=== PATIENT | female | born 1935 | race Caucasian/White ===

== ENCOUNTER 2016-08-27 09:13 | Inpatient (IN) ==
--- NOTE | 2016-08-27 09:17 | Emergency Department Note ---
Disposition Clinical Impression: Chest pain, History of hypertension, Obesity, Abnormal EKG, Adverse reaction to aspirin, History of pulmonary embolus (PE), Non-STEMI (non-ST elevated myocardial infarction), Elevated troponin, Hypokalemia Disposition: Admitted As Inpatient Referrals: Skip Herrera Jr, MD [Primary Care Provider] - General Adult HPI - General Stated complaint: Chest Pain Time Seen by Provider: 08/27/16 09:16 - History of Present Illness HPI Narrative: 80-year-old female reports emergency department concerned with midsternal chest discomfort. She describes a pressure-like sensation does not radiate. There is no history of coughing, leg swelling or pain, coughing up blood or syncope. No strokelike symptoms no trouble walking talking hearing seeing or speaking confusion dysarthria or unilateral arm or leg weakness or numbness. The patient is currently not anticoagulated. She has no history of primary lung disease COPD asthma or CAD or PE or DVT or cancer. The patient reports her only medical problem is high blood pressure. She denies previous heart catheter or stress test. The patient does not usually have chest pain. She does not recall injuring herself the pain is not associated with breathing in and out or movement. There is no history of rash fever or any other complaint or concern. The pain started last evening. The patient states she has been moving and is under a lot of stress. 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 - Related Data Home Medications Medication Instructions Recorded Confirmed hydroCHLOROthiazide 25 mg PO DAILY 08/27/16 08/27/16 [Hydrochlorothiazide] Allergies Allergy/AdvReac Type Severity Reaction Status Date / Time aspirin Allergy See Verified 08/27/16 11:19 Comments heparin Allergy See Verified 08/27/16 11:19 Comments All systems ED: reviewed and negative except as stated. Past Medical History - Past Medical History Medical history: Reports: hypertension - Social History Smoking Status: Unknown if ever smoked Smokeless Tobacco Status: No Alcohol use: Reports: occasionally Physical Exam - General Limitations: no limitations General appearance: alert, in no apparent distress - Head Head exam: atraumatic, normocephalic, normal inspection - Eye Eye exam: Present: normal appearance, PERRL, EOMI. Absent: scleral icterus, conjunctival injection, miosis, mydriasis, periorbital swelling - ENT ENT exam: normal exam, normal oropharynx, mucous membranes moist, TM's normal bilaterally, normal external ear exam - Neck Neck exam: Present: normal inspection, full ROM, trachea midline - Chest Chest inspection: Present: symmetric chest wall rise. Absent: tenderness - Respiratory Respiratory exam: Present: normal lung sounds bilaterally. Absent: respiratory distress, wheezes, stridor, accessory muscle use, prolonged expiratory phase - Cardiovascular Cardiovascular exam: Present: regular rate, normal rhythm, normal heart sounds - Abdominal Exam Abdominal exam: Present: soft, Non-Tender, normal bowel sounds. Absent: tenderness, distention, guarding, rebound, rigidity, pulsatile mass - Extremities Exam Extremities exam: Present: normal inspection, full ROM, normal capillary refill. Absent: tenderness, pedal edema, joint swelling, calf tenderness - Expanded Lower Extremity Exam Neurovascular/Tendon exam: Absent: motor deficit, sensory deficit, tendon deficit, extremity cold to touch, pallor - Back Exam Back exam: Present: normal inspection, full ROM. Absent: tenderness, CVA tenderness (R), CVA tenderness (L), vertebral tenderness - Neurological Exam Neurological exam: Present: alert, oriented X3, CN II-XII intact. Absent: motor sensory deficit - Psychiatric Psychiatric exam: Present: normal affect, normal mood - Skin Skin exam: Present: warm, dry, intact, normal color. Absent: rash, cyanosis, diaphoresis, erythema, pallor, mottled Course Vital Signs Temperature 98.0 F 08/27/16 09:16 Pulse Rate 81 08/27/16 09:16 Respiratory Rate 18 08/27/16 09:16 Blood Pressure 145/94 08/27/16 09:16 O2 Sat by Pulse Oximetry 98 08/27/16 09:16 Temperature 98.0 F 08/27/16 09:16 Pulse Rate 61 08/27/16 10:30 Respiratory Rate 16 08/27/16 10:30 Blood Pressure 144/77 08/27/16 10:30 O2 Sat by Pulse Oximetry 99 08/27/16 10:30 Oxygen Delivery Oxygen Delivery Nasal Cannula Medical Decision Making - [facility] Narrative Medical decision making narrative: The patient is elderly, is experiencing chest pain, she has a history of hypertension, she is somewhat obese, and her EKG appears to show ST depressions and she has an elevated troponin. The patient has never had a heart catheterization or stress test. She reports remotely that she had a PE and was on Coumadin for a period of time. She states she does not feel the same as her previous PE. The patient reports that she had petechial hemorrhage from aspirin and skin biopsies were obtained and she was diagnosed with aspirin based pathology. She also reports she has significant adverse reaction to heparin. Based on her chest pain and associated risk factors with abnormal EKG with elevated troponin I thought it would be appropriate to admit the patient to the hospital. The patient describes a significant reaction to aspirin including petechial hemorrhage, as well as a history of adverse history of reaction to heparin, based on her reactions, aspirin and heparin were not ordered initially. The patient seems to have changes suggestive of non-STEMI, further workup regarding potential evaluation for Pulmonary embolus or other acute pathology as per the admitting team. A d-dimer has been ordered. Potassium was ordered. The patient is currently stable. Nitropaste was placed. She states that she felt improved while in the ED. I discussed the case with the hospitalist on-call who has accepted the patient to their care. - Lab Data Lab results reviewed: Yes I reviewed the patient's lab results. Result diagrams: 08/27/16 09:36 08/27/16 09:36 Lab Results 08/27/16 08/27/16 08/27/16 Range/Units 09:36 09:36 09:36 WBC (4.3-11.1) K/mcL RBC (3.82-4.97) M/mcL Hgb (11.5-15.4) g/dL Hct (35.3-44.9) % MCV (83.0-100.0) fL MCH (28.0-33.3) pg MCHC (31.6-35.5) g/dL RDW (11.5-14.5) % Plt Count (140-400) K/mcL MPV (9.4-12.4) fL Seg Neutrophils % % Lymphocytes % % Monocytes % % Eosinophils % % Basophils % % Neutrophils # (1.6-8.9) K/mcL Lymphocytes # (0.6-4.6) K/mcL Monocytes # (0.0-1.3) K/mcL Eosinophils # (0.0-0.6) K/mcL Basophils # (0.0-0.2) K/mcL PT 11.9 (9.4-12.1) Seconds INR 1.1 APTT 28.9 (26.0-36.0) Seconds Sodium 142 (136-145) mEq/L Potassium 2.9 L (3.5-4.5) mEq/L Chloride 103 (98-109) mEq/L Carbon Dioxide 25 (19-29) mEq/L BUN 15 (7-20) mg/dL Creatinine 0.81 (0.57-1.11) mg/dL Est GFR ( Amer) > 60 (> 60) Est GFR (Non-Af Amer) > 60 (> 60) BUN/Creatinine Ratio 19 (6-26) Glucose 111 H (70-99) mg/dL Calculated Osmolality 296 (280-300) Lactic Acid (0.5-2.2) mmol/L Calcium 9.7 (8.6-10.8) mg/dL Total Bilirubin 0.7 (0.2-1.2) mg/dL Direct Bilirubin 0.2 (0.0-0.5) mg/dL Indirect Bilirubin 0.5 (0.0-1.2) mg/dL AST 27 (5-34) Units/L ALT 14 (0-55) Units/L Alkaline Phosphatase 80 (38-126) Units/L Troponin I (0-0.03) ng/mL C-Reactive Protein 2 (Less than 5) mg/L B-Natriuretic Peptide 130 H (0-100) pg/mL Serum Total Protein 7.4 (6.0-8.3) g/dL Albumin 3.9 (3.5-5.0) g/dL Globulin 3.5 (2.4-3.5) g/dL Albumin/Globulin Ratio 1.1 (1.1-2.2) Lipase 30 (8-78) Units/L 08/27/16 08/27/16 08/27/16 Range/Units 09:36 09:36 09:36 WBC 5.3 (4.3-11.1) K/mcL RBC 4.92 (3.82-4.97) M/mcL Hgb 15.1 (11.5-15.4) g/dL Hct 45.1 H (35.3-44.9) % MCV 91.7 (83.0-100.0) fL MCH 30.7 (28.0-33.3) pg MCHC 33.5 (31.6-35.5) g/dL RDW 13.7 (11.5-14.5) % Plt Count 180 (140-400) K/mcL MPV 9.7 (9.4-12.4) fL Seg Neutrophils % 49.6 % Lymphocytes % 36.7 % Monocytes % 9.5 % Eosinophils % 3.2 % Basophils % 0.8 % Neutrophils # 2.6 (1.6-8.9) K/mcL Lymphocytes # 2.0 (0.6-4.6) K/mcL Monocytes # 0.5 (0.0-1.3) K/mcL Eosinophils # 0.2 (0.0-0.6) K/mcL Basophils # 0.0 (0.0-0.2) K/mcL PT (9.4-12.1) Seconds INR APTT (26.0-36.0) Seconds Sodium (136-145) mEq/L Potassium (3.5-4.5) mEq/L Chloride (98-109) mEq/L Carbon Dioxide (19-29) mEq/L BUN (7-20) mg/dL Creatinine (0.57-1.11) mg/dL Est GFR ( Amer) (> 60) Est GFR (Non-Af Amer) (> 60) BUN/Creatinine Ratio (6-26) Glucose (70-99) mg/dL Calculated Osmolality (280-300) Lactic Acid 2.2 (0.5-2.2) mmol/L Calcium (8.6-10.8) mg/dL Total Bilirubin (0.2-1.2) mg/dL Direct Bilirubin (0.0-0.5) mg/dL Indirect Bilirubin (0.0-1.2) mg/dL AST (5-34) Units/L ALT (0-55) Units/L Alkaline Phosphatase (38-126) Units/L Troponin I 0.78 H* (0-0.03) ng/mL C-Reactive Protein (Less than 5) mg/L B-Natriuretic Peptide (0-100) pg/mL Serum Total Protein (6.0-8.3) g/dL Albumin (3.5-5.0) g/dL Globulin (2.4-3.5) g/dL Albumin/Globulin Ratio (1.1-2.2) Lipase (8-78) Units/L - Radiology Data Radiology results reviewed: Yes I reviewed the patient's radiology results.
[2016-08-27 09:59] LABS: Activated Partial Thrombo Time 28.9 Seconds (26.0-36.0); INR 1.1; Prothrombin Time 11.9 Seconds (9.4-12.1)
[2016-08-27 10:03] LABS: Hematocrit 45.1 % (35.3-44.9); Hemoglobin 15.1 g/dL (11.5-15.4); Red Blood Count 4.92 M/mcL (3.82-4.97)
[2016-08-27 10:04] LABS: Mean Corpuscular HGB Conc 33.5 g/dL (31.6-35.5); Mean Corpuscular Hemoglobin 30.7 pg (28.0-33.3); Mean Corpuscular Volume 91.7 fL (83.0-100.0); Mean Platelet Volume 9.7 fL (9.4-12.4); Platelet Count 180 K/mcL (140-400); Red Cell Distribution Width 13.7 % (11.5-14.5)
[2016-08-27 10:05] LABS: Basophils % 0.8 %; Eosinophils # 0.2 K/mcL (0.0-0.6); Eosinophils % 3.2 %; Lymphocytes % 36.7 %; Monocytes # 0.5 K/mcL (0.0-1.3); Monocytes % 9.5 %; Neutrophils # 2.6 K/mcL (1.6-8.9); Segmented Neutrophils % 49.6 %
[2016-08-27 11:01] LABS: Albumin 3.9 g/dL (3.5-5.0); Albumin/Globulin Ratio 1.1 (1.1-2.2); C-Reactive Protein 2 mg/L (Less than 5); Globulin 3.5 g/dL (2.4-3.5); Lipase 30 Units/L (8-78); Total Protein 7.4 g/dL (6.0-8.3)
[2016-08-27 11:02] LABS: Alanine Aminotransferase 14 Units/L (0-55); Alkaline Phosphatase 80 Units/L (38-126); Aspartate Amino Transferase 27 Units/L (5-34); Bilirubin,Direct 0.2 mg/dL (0.0-0.5); Bilirubin,Indirect 0.5 mg/dL (0.0-1.2); Bilirubin,Total 0.7 mg/dL (0.2-1.2)
[2016-08-27] MEDS ORDERED: Nitroglycerin 1 INCH/GM PACKET TP ONE (11:07)
[2016-08-27 11:09] LABS: BUN/Creatinine Ratio 19 (6-26); Blood Urea Nitrogen 15 mg/dL (7-20); Calcium 9.7 mg/dL (8.6-10.8); Carbon Dioxide 25 mEq/L (19-29); Chloride 103 mEq/L (98-109); Glucose 111 mg/dL (70-99); Osmolality,Calculated 296 (280-300); Potassium 2.9 mEq/L (3.5-4.5); Sodium 142 mEq/L (136-145); eGFR For African Americans > 60 (> 60); eGFR For Non-African Americans > 60 (> 60)
[2016-08-27] MEDS ORDERED: Naloxone 0.4 MG/ML INJ IVP PRN (12:23)
--- NOTE | 2016-08-27 12:42 | Internal Med History&Physical ---
Date of Encounter: 08/27/16 Time of Encounter: 12:40 Assessment and Plan (1) Non-STEMI (non-ST elevated myocardial infarction) Current visit: Yes Status: Acute Patient presented with chest pressure since last evening, SOB, lightheadedness and sweats. EKG shows ST depressions in lateral leads. Troponin elevated at 0.78. Patient given Nitropaste in ED which somewhat relieved chest pressure. Patient with allergies to heparin and aspirin. Cardiology consulted, spoke with Dr. Grimes, who will see patient. NPO until cardiology sees patient in case of cath today. (2) Hypertension Current visit: Yes Status: Acute Continue home dose of HCTZ. Qualifiers: Hypertension type: essential hypertension Qualified Code(s): I10 - Essential (primary) hypertension (3) Hypokalemia Current visit: Yes Status: Acute Potassium of 2.9. 40 mEq of PO potassium given in ED. Will give another 40mEq PO and recheck chemistry in the morning. (4) DVT prophylaxis Current visit: Yes Status: Acute sequential compression devices. Patient with allergies to aspirin and heparin. Internal Medicine - H&P: HPI Chief complaint: chest pain Admitted From: Emergency Dept Plans for Post Hospital Care: Home History of present illness: Ms. Lott is a 80 year old female with hypertension and history of remote PE at age 37, who presented to the emergency department today with complaints of chest pain. She reports that last evening approximately 7:00 she developed tightness in her chest that she initially thought was indigestion she experienced lightheadedness on and off last evening as well as some shortness of breath. This morning she woke up in the chest pressure was still there, and she had what she described as a hot flash with sweating. She denies any headache, palpitations, abdominal pain, diarrhea, fever, chills. She reports some mild nausea. Evaluation in the emergency department included an EKG which showed ST depression in the lateral leads, elevated troponin of 0.78, elevated BNP of 130, hypokalemia with potassium 2.9. Chest x-ray showed no acute abnormality. Patient has allergies to aspirin and heparin. She was given Nitropaste and reports that her chest pressure improved after the Nitropaste. On exam, patient alert and oriented, in no acute distress. Lungs are clear bilaterally to auscultation, heart has regular rate and rhythm. Past Med Surg Social Fam HX - Past Medical History Medical history: hypertension, pulmonary embolus - Past Surgical History Surgical History: other (tonsillectomy) - Social History Smoking Status: Former smoker (10 pack year history) Smokeless Tobacco Status: No Alcohol use: occasionally Drug use: none - Family History Mother Living Status: Age at : 89 Cause of : Breast cancer Hx Family Cancer: Yes Father Living Status: Age at : 88 Cause of : [place] Hx Family Cardiac Disorders: Yes Internal Medicine - H&P: Meds hydroCHLOROthiazide [Hydrochlorothiazide] 25 mg PO DAILY 08/27/16 [History] Allergies aspirin Allergy (Verified 08/27/16 11:19) See Comments Bleeds internal heparin Allergy (Verified 08/27/16 11:19) See Comments All Systems PM: A 10-system review of systems was performed and is negative for pertinent findings except as documented above in the HPI. - Constitutional Constitutional: no chills, no fever(s), no night sweats - EENT Eyes: no change in vision, no discharge, no pain, no photophobia Ears: no ear discharge, no ear pain, no tinnitus Nose, mouth and throat: no dysphagia, no nasal discharge, no neck pain, no sore throat - Cardiovascular Cardiovascular ROS IM: chest pain, diaphoresis, dyspnea, lightheadedness, no palpitations, no syncope - Respiratory Respiratory: no cough, no dyspnea, no wheezing, no excessive phlegm production - Gastrointestinal Gastrointestinal: nausea, no abdominal pain, no diarrhea, no hematemesis, no hematochezia, no melena, no vomiting - Genitourinary Genitourinary: no change in urinary stream, no dysuria, no flank pain, no hematuria - Musculoskeletal Musculoskeletal ROS IM: no numbness, no tingling - Integumentary Integumentary IM: no rash, no unusual bruising - Neurological Neurological ROS: no confusion, no convulsions, no focal weakness, no numbness, no tingling, no tremor(s) - Hematologic/Lymphatic Hematologic/Lymphatic: no easy bruising - Constitutional Vitals: Temp Pulse Resp BP Pulse Ox 98.0 F 62 16 140/86 99 08/27/16 09:16 08/27/16 11:30 08/27/16 12:34 08/27/16 12:34 08/27/16 11:30 General appearance: Present: A&O X 3, pleasant, no acute distress - Head Head exam: Present: atraumatic, normocephalic - Eye Eye exam: Present: PERRL, conjuntiva pink, sclera anicteric Pupils: Present: PERRL - Neck Neck exam general surgery: Present: supple, trachea midline. Absent: lymphadenopathy - Respiratory Respiratory exam: Present: CTAB. Absent: accessory muscle use, rales, rhonchi, wheezes - Cardiovascular Cardiovascular exam: Present: RRR, +S1, +S2. Absent: diastolic murmur, gallop, rubs, systolic murmur - GI/Abdominal GI/Abdominal exam: Present: normal bowel sounds, soft, no peritoneal signs. Absent: distended, tenderness - Extremities Exam Extremities exam: Present: warm, radial pulses palpable and symetrical. Absent : calf tenderness, cyanotic, pedal edema - Neurological Exam Neurological exam: Present: CN II-XII intact, oriented X3, no focal deficits. Absent: facial droop, speech deficit - Skin Skin exam: Present: dry, intact Internal Med - H&P Results - Labs CBC & Chem 7: 08/27/16 09:36 08/27/16 09:36 Labs: All Lab Results (24 Hours) 08/27/16 08/27/16 08/27/16 Range/Units 09:36 09:36 09:36 WBC (4.3-11.1) K/mcL RBC (3.82-4.97) M/mcL Hgb (11.5-15.4) g/dL Hct (35.3-44.9) % MCV (83.0-100.0) fL MCH (28.0-33.3) pg MCHC (31.6-35.5) g/dL RDW (11.5-14.5) % Plt Count (140-400) K/mcL MPV (9.4-12.4) fL Seg Neutrophils % % Lymphocytes % % Monocytes % % Eosinophils % % Basophils % % Neutrophils # (1.6-8.9) K/mcL Lymphocytes # (0.6-4.6) K/mcL Monocytes # (0.0-1.3) K/mcL Eosinophils # (0.0-0.6) K/mcL Basophils # (0.0-0.2) K/mcL PT 11.9 (9.4-12.1) Seconds INR 1.1 APTT 28.9 (26.0-36.0) Seconds Sodium 142 (136-145) mEq/L Potassium 2.9 L (3.5-4.5) mEq/L Chloride 103 (98-109) mEq/L Carbon Dioxide 25 (19-29) mEq/L BUN 15 (7-20) mg/dL Creatinine 0.81 (0.57-1.11) mg/dL Est GFR ( Amer) > 60 (> 60) Est GFR (Non-Af Amer) > 60 (> 60) BUN/Creatinine Ratio 19 (6-26) Glucose 111 H (70-99) mg/dL Calculated Osmolality 296 (280-300) Lactic Acid (0.5-2.2) mmol/L Calcium 9.7 (8.6-10.8) mg/dL Total Bilirubin 0.7 (0.2-1.2) mg/dL Direct Bilirubin 0.2 (0.0-0.5) mg/dL Indirect Bilirubin 0.5 (0.0-1.2) mg/dL AST 27 (5-34) Units/L ALT 14 (0-55) Units/L Alkaline Phosphatase 80 (38-126) Units/L Troponin I (0-0.03) ng/mL C-Reactive Protein 2 (Less than 5) mg/L B-Natriuretic Peptide 130 H (0-100) pg/mL Serum Total Protein 7.4 (6.0-8.3) g/dL Albumin 3.9 (3.5-5.0) g/dL Globulin 3.5 (2.4-3.5) g/dL Albumin/Globulin Ratio 1.1 (1.1-2.2) Lipase 30 (8-78) Units/L 08/27/16 08/27/16 08/27/16 Range/Units 09:36 09:36 09:36 WBC 5.3 (4.3-11.1) K/mcL RBC 4.92 (3.82-4.97) M/mcL Hgb 15.1 (11.5-15.4) g/dL Hct 45.1 H (35.3-44.9) % MCV 91.7 (83.0-100.0) fL MCH 30.7 (28.0-33.3) pg MCHC 33.5 (31.6-35.5) g/dL RDW 13.7 (11.5-14.5) % Plt Count 180 (140-400) K/mcL MPV 9.7 (9.4-12.4) fL Seg Neutrophils % 49.6 % Lymphocytes % 36.7 % Monocytes % 9.5 % Eosinophils % 3.2 % Basophils % 0.8 % Neutrophils # 2.6 (1.6-8.9) K/mcL Lymphocytes # 2.0 (0.6-4.6) K/mcL Monocytes # 0.5 (0.0-1.3) K/mcL Eosinophils # 0.2 (0.0-0.6) K/mcL Basophils # 0.0 (0.0-0.2) K/mcL PT (9.4-12.1) Seconds INR APTT (26.0-36.0) Seconds Sodium (136-145) mEq/L Potassium (3.5-4.5) mEq/L Chloride (98-109) mEq/L Carbon Dioxide (19-29) mEq/L BUN (7-20) mg/dL Creatinine (0.57-1.11) mg/dL Est GFR ( Amer) (> 60) Est GFR (Non-Af Amer) (> 60) BUN/Creatinine Ratio (6-26) Glucose (70-99) mg/dL Calculated Osmolality (280-300) Lactic Acid 2.2 (0.5-2.2) mmol/L Calcium (8.6-10.8) mg/dL Total Bilirubin (0.2-1.2) mg/dL Direct Bilirubin (0.0-0.5) mg/dL Indirect Bilirubin (0.0-1.2) mg/dL AST (5-34) Units/L ALT (0-55) Units/L Alkaline Phosphatase (38-126) Units/L Troponin I 0.78 H* (0-0.03) ng/mL C-Reactive Protein (Less than 5) mg/L B-Natriuretic Peptide (0-100) pg/mL Serum Total Protein (6.0-8.3) g/dL Albumin (3.5-5.0) g/dL Globulin (2.4-3.5) g/dL Albumin/Globulin Ratio (1.1-2.2) Lipase (8-78) Units/L - Diagnostic Studies Chest x-ray Additional comments: Chest X-Ray 08/27/16 09:17 IMPRESSION: No acute abnormality. D/ / 08/27/2016 10:30:56 Jose Luis Laio MD / jaqui Interpreting Provider: Jose Luis Liao MD
--- NOTE | 2016-08-27 14:26 | Cardiology Consult Note ---
Date of Encounter: 08/27/16 Time of Encounter: 14:20 Assessment and Plan (1) Non-STEMI (non-ST elevated myocardial infarction) Current Visit: Yes Status: Acute NSTEMI. Troponin 0.78. EKG shows ST depression in leads I, II, and V3-V6. Describes typical symptoms. Cardiac risk factors include hypertension. Continue to trend troponin. Check TTE. Typically LHC would be recommended but is complicated d/t aspirin and heparin allergy. Patient reports diffuse peteciae rash with aspirin over 30 years ago. She also had a reaction to heparin and was told not to take. Will consult hematology to evaluate for possible PLT disorder. I also called and discussed with immunology, Dr. Shipley, for possible asa desensitization. Asa desensitization is for IEg immediated rashes. We will wait for hematology input. Continue NTG as needed. Add beta-german and statin therapy. (2) Hypokalemia Current Visit: Yes Status: Acute Potassium 2.9. Potassium replaced by primary team. (3) History of hypertension Current Visit: Yes Status: Acute B/p elevated. Continue HCTZ. Adding metoprolol. Low sodium diet. Discussion w patient/family: The assessment and plan as outlined above was discussed with the patient and/or family members who expressed understanding and agreement. All questions were answered. Thank you for involving us in the care of your patient. Please call with any questions. History of Present Illness Consult date: 08/27/16 Requesting physician: Juan Morillo Consult reason: NSTEMI Chief complaint: Chest pain. History of present illness: Ms. Lott is a 80 year old female with a history of hypertension and pulmonary embolism who presents with midsternal chest heaviness starting yesterday while she was cleaning her pool. Her pain continued through the night. She tried belching with no relief. She states she was able to sleep good despite having chest discomfort. This morning she became SOB and broke out in a sweat. She presented to the ED. Troponin found to be elevated at 0.76. D-dimer was normal. EKG showed borderline ST depression in leads I, II, and V3-V6. On my exam she continues to have mild midsternal chest discomfort. She reports a history of heparin allergy she experienced 30 yrs ago. She is unsure of the reaction but remembers feeling like she was going to pass out and breaking out in a sweat. She also reports taking asa and developing petechiae all over. She was told to never take asa d/t reaction. Past Med Surg Social Fam HX - Past Medical History Attestation: Yes The following information was validated with the patient. Medical history: hypertension, pulmonary embolus - Past Surgical History Surgical History: other (tonsillectomy) - Social History Smoking Status: Former smoker (10 pack year history) Smokeless Tobacco Status: No Alcohol use: occasionally Drug use: none - Family History Mother Living Status: Age at : 89 Cause of : Breast cancer Hx Family Cancer: Yes Father Living Status: Age at : 88 Cause of : [place] Hx Family Cardiac Disorders: Yes Medications and Allergies hydroCHLOROthiazide [Hydrochlorothiazide] 25 mg PO DAILY 08/27/16 [History] Allergies aspirin Allergy (Verified 08/27/16 11:19) See Comments Bleeds internal heparin Allergy (Verified 08/27/16 11:19) See Comments All Systems Review: A 10-system review of systems was performed and is negative for pertinent findings except as documented above in the HPI. Physical Examination Vital Signs, Last 4 Hours Temp Pulse Resp BP Pulse Ox 08/27/16 13:02 97.6 F 63 16 164/91 98 08/27/16 12:54 99 08/27/16 12:34 16 140/86 General: Conversant, No Apparent Distress HEENT: Atraumatic, Normocephaly, Mucus Membranes Moist Neck: No JVD, Normal carotid pulses Cardiac: Reg Rate and Rhythm, Normal S1 and S2, No Murmur Lungs: Normal Breath Sounds, No Wheeze, Rales, Rhonchi Neuro: Alert and responsive, No focal deficits noted Abdomen: Soft, Non-Tender Skin: No rashes noted on visualized skin Musculoskeletal: No Chest Wall Tenderness Extremities: No Clubbing, No Cyanosis, No Edema, Normal Pulses Results 08/27/16 09:36 08/27/16 09:36 Lab Results 08/27/16 12:42 D-Dimer 277 - EKG Interpretation EKG results cardiology: personally reviewed Consult Discharge Plan - Plan
--- NOTE | 2016-08-27 19:18 | Electrocardiograph Report ---
[facility] Test Date: 2016-08-27 Pat Name: Kathrin Lott Department: 102 Room: 2NE16 Gender: F Echo Technologist: : 1935 Requested By: Zurdo London Order Number: [id number] Reading MD: Jerad Kruse MD Measurements Intervals Mio Rate: 73 P: 50 MS: 181 QRS: -20 QRSD: 94 T: 3 QT: 391 QTc: 417 Interpretive Statements SINUS RHYTHM NON SPECIFIC ST-T CHANGES Electronically Signed On 08-27-2016 19:17:01 EDT by Jerad Kruse MD
[2016-08-28 04:02] LABS: Basophils # 0.1 K/mcL (0.0-0.2); Basophils % 0.9 %; Eosinophils # 0.3 K/mcL (0.0-0.6); Eosinophils % 5.2 %; Hematocrit 42.5 % (35.3-44.9); Immature Granulocytes % 0.2 % (0-4); Lymphocytes # 2.1 K/mcL (0.6-4.6); Lymphocytes % 35.4 %; Mean Corpuscular HGB Conc 32.9 g/dL (31.6-35.5); Mean Corpuscular Hemoglobin 30.6 pg (28.0-33.3); Mean Corpuscular Volume 92.8 fL (83.0-100.0); Mean Platelet Volume 9.9 fL (9.4-12.4); Monocytes # 0.6 K/mcL (0.0-1.3); Neutrophils # 2.8 K/mcL (1.6-8.9); Platelet Count 169 K/mcL (140-400); Red Blood Count 4.58 M/mcL (3.82-4.97); Red Cell Distribution Width 13.9 % (11.5-14.5); Segmented Neutrophils % 47.3 %
[2016-08-28 05:36] LABS: BUN/Creatinine Ratio 23 (6-26); Blood Urea Nitrogen 18 mg/dL (7-20); Calcium 9.3 mg/dL (8.6-10.8); Carbon Dioxide 28 mEq/L (19-29); Chloride 106 mEq/L (98-109); Glucose 109 mg/dL (70-99); Osmolality,Calculated 294 (280-300); Sodium 141 mEq/L (136-145); eGFR For African Americans > 60 (> 60); eGFR For Non-African Americans > 60 (> 60)
[2016-08-28] MEDS: hydroCHLOROthiazide 25 MG TABLET PO SCH (09:10)
--- NOTE | 2016-08-28 09:42 | Cardiology Progress Note ---
Date of Encounter: 08/28/16 Time of Encounter: 09:40 Assessment and Plan (1) Non-STEMI (non-ST elevated myocardial infarction) Current Visit: Yes Status: Acute NSTEMI. Troponin 0.78. 1.55, 1.22. EKG shows ST depression in leads I, II, and V3-V6. Describes typical symptoms. No recurrent symptoms overnight. Cardiac risk factors include hypertension. TTE- EF 65%. No significant valvular disease. Mild diastolic dysfunction. Discussed aspirin and heparin allergy with hematology, Dr. Jimenez. Recommendations from hematology: Bivalirudin- intravenous bolus on 0.1 mg/kg and an infusion of 0.25mg/kg per hour if started before angiography: if PCI is performed, an additional 0.5mg/kg bolus ~is given and the infusion rate is increased to 1.75mg/kg per hour. If started in the laborer marine terminal at the time of PCI, intravenous bolus of 0.75mg/kg and an infusion of 1.75mg/kg an hour is appropriate. P2Y12 receptor german- Plavix or other P2Y12 receptor blockers. If Dual antiplatelets therapy wanted use P2Y12 receptor german and pletal. Discussed with Dr. Mahan, start ticagrelor and stop plavix. Continue NTG as needed. Continue beta-german and statin therapy. Plan for [facility] today as discussed. Indications, risk, and alternatives reviewed. (2) Hypokalemia Current Visit: Yes Status: Acute Potassium 2.9. Potassium replaced by primary team. Potassium now 4.0. (3) History of hypertension Current Visit: Yes Status: Acute B/p elevated on admission and now controlled. Continue HCTZ and metoprolol. Low sodium diet. Discussion w patient/family: The assessment and plan as outlined above was discussed with the patient and/or family members who expressed understanding and agreement. All questions were answered. Thank you for involving us in the care of your patient. Please call with any questions. Subjective Principal diagnosis: NSTEMI Interval history: Denies chest pain overnight. Resting comfortably. Objective Vital Signs, Last 4 Hours Temp Pulse Resp BP Pulse Ox 08/28/16 07:45 97.8 F 71 15 136/80 97 General: Conversant, No Apparent Distress HEENT: Atraumatic, Normocephaly, Mucus Membranes Moist Neck: No JVD, Normal carotid pulses Cardiac: Reg Rate and Rhythm, Normal S1 and S2, Other (2/6/ systolic murmur RSB. ) Lungs: Normal Breath Sounds, No Wheeze, Rales, Rhonchi Neuro: Alert and responsive, No focal deficits noted Abdomen: Soft, Non-Tender Skin: No rashes noted on visualized skin Musculoskeletal: No Chest Wall Tenderness Extremities: No Clubbing, No Cyanosis, No Edema, Normal Pulses Results 08/28/16 02:50 08/28/16 04:35 Lab Results 08/27/16 08/27/16 08/27/16 12:42 15:22 22:22 WBC Hgb Hct Plt Count D-Dimer 277 Sodium Potassium Chloride Carbon Dioxide BUN Creatinine Glucose Calcium Troponin I 1.55 H* 1.22 H* 08/28/16 08/28/16 02:50 04:35 WBC 5.8 Hgb 14.0 Hct 42.5 Plt Count 169 D-Dimer Sodium 141 Potassium 4.0 D Chloride 106 Carbon Dioxide 28 BUN 18 Creatinine 0.77 Glucose 109 H Calcium 9.3 Troponin I - Imaging and Cardiology Echo: report reviewed - EKG Interpretation EKG results cardiology: other (.24 hour telemetry review shows NSR. No concerning arrhythmias) Consult Discharge Plan - Plan Referrals: Skip Herrera Jr, MD [Primary Care Provider] -
[2016-08-28] MEDS ORDERED: *HR* Ticagrelor 90 MG TABLET PO SCH (10:15)
[2016-08-28] MEDS ORDERED: Verapamil 5 MG/2 ML VIAL ONE (10:59)
[2016-08-28] MEDS ORDERED: 0.9 % Sodium Chloride 500 ML ONE (11:00)
[2016-08-28] MEDS ORDERED: Nitroglycerin 1,000 MCG/10 ML VIAL IV ONE (11:00)
[2016-08-28] MEDS ORDERED: 0.9 % Sodium Chloride 1,000 ML ONE ×2 (11:00→12:00)
[2016-08-28] MEDS ORDERED: *HR* Bivalirudin 250 MG VIAL IVC ONE (11:55)
[2016-08-28] MEDS ORDERED: *HR* Midazolam HCl 2 MG/2 ML VIAL ONE (11:55)
--- NOTE | 2016-08-28 11:55 | Pre-Sedation Evaluation ---
Pre-sedation evaluation - Pre-sedation checklist Date of procedure: 08/28/16 Procedure: heart cath Recent Vitals: Last Vital Signs Temp 97.8 F 08/28/16 07:45 Pulse 71 08/28/16 07:45 Resp 15 08/28/16 07:45 BP 136/80 08/28/16 07:45 Pulse Ox 97 08/28/16 09:09 H&P (including ROS) documented in medical record: Yes Previous reaction to sedatives/anesthetics: No Dentition: No loose teeth or bridges ASA Classification *see protocol: CLASS II-Mild systemic disease Plan of Care: Pt appropriate candidate for procedure/moderate/conscious sedation , Risks/benefits of procedure/sedation discussed w/ patient/family
[2016-08-28] MEDS ORDERED: *HR* FentaNYL (PF) 100 MCG/2 ML VIAL ONE (11:56)
--- NOTE | 2016-08-28 12:37 | Invasive Diagnostic Lab Proc ---
Name: Kathrin Lott Date of Study: 08/28/2016 Date: 1935 Ht: 62.0in Medical Record#: [id number] Age: 80 Wt: 170.42lb Gender: Female BSA: 1.79 Order #: [id number] BMI: 31.16 Physicians Procedure Physician: Adrien Mahan MD, [facility] Referring MD: Referring MD: Staff Name Position Time In Sites, [facility] RT (R) Monitor 12:07 PM Flora Goyal RT (R) Scrub 12:07 PM Joseline Raza RN Surplus Property Disposal Agent 12:07 PM Indications Indication Non-Stemi Procedures Performed Procedure L HRT ARTERY/VENTRICLE ANGIO Pre-Procedure Checklist Informed consent is complete signed and on chart. H\\T\\P is on chart. ID band is on and ID verified with patient. Patient NPO for procedure The procedure was described for the patient and questions were answered. Blood Pressure: 136/80 ECG is on chart. Rhythm: NSR Plan of Care Patient will tolerate the procedure without complications. Adequate level of comfort will be maintained. Hemodynamics will remain stable Patient will recover from procedure without complications. Respiratory function will be maintained. Cardiac rhythm will remain stable. Patient temperature will be maintained. Patient and/or family have verbalized understanding of the procedure. Patient Education Chief Complaint/Reason for Test: Cardiac Cath Developmental Category: Adult (18-64 years) Developmentally Appropriate for Age: Yes Learning Barriers: None Education Needs: Procedure Education Method: Verbal Information Taught: Cardiac Cath Educational Evaluation: Able to repeat information Intravenous Access Time IV Size Location DC'd Fluid/Drip Rate Units RN 11:03 AM 20g 1 /" Patent On Arrival Rt Hand 0.9NaCl 25 ml/hr Allergies aspirin heparin Vital Signs Time BP (mmHg) HR (bpm) O2 Sat. RR (bpm) LOC 11:04 AM 136 / 80 71 97 % 15 5 = Fully awake and oriented or at pre-proc level 12:08 PM / % 5 = Fully awake and oriented or at pre-proc level 12:06 PM 163 / 82 64 100 % 19 12:10 PM 131 / 69 66 98 % 26 12:15 PM 106 / 75 63 98 % 13 12:21 PM 120 / 67 68 96 % 24 12:25 PM 123 / 66 65 95 % 13 Procedural Medications Time Medication Dose Units Method Given By 12:08 PM Oxygen 2 L/min nasal cannula Joseline Raza RN 12:08 PM Versed 2 mg Intravenous Joseline Raza RN 12:08 PM Fentanyl 50 mcg Intravenous Joseline Raza RN 12:13 PM Lidocaine 2% 18 ml Subcutaneous Adrien Mahan MD, [facility] ASA Classification: CLASS II- Mild systemic disease (i.e. well-controlled diabetes, hypertension, asthma, cigarette smoking) Chato Score Preprocedure Postprocedure Activity 2- Moves 4 extremities sustained head lift Activity 2- Moves 4 extremities sustained head lift Circulation 2- SBP +/= 20 points of pre-anesthetic level Circulation 2- SBP +/= 20 points of pre-anesthetic level Consciousness 2- Awake and alert oriented x 3 Consciousness 2- Awake and alert oriented x 3 O2 Saturation 2- Able to maintain O2 satruation of 92% on room air O2 Saturation 2- Able to maintain O2 satruation of 92% on room air Respiratory 2- Able to deep breathe and cough well Respiratory 2- Able to deep breathe and cough well Total Score 10 Total Score 10 Contrast Agent: Isovue Diagnostic Contrast: 54 ml Total Contrast: 54 ml Fluoro Dose: 95 mGy Procedure Log Time Note Enter By 11:55 AM 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 [email or web address] 11:55 AM Procedure start 11:55 [email or web address] 11:55 AM Jen Salas RT (R) Position: Monitor Time in: 11:55 [email or web address] 11:55 AM Flora Goyal RT (R) Position: Scrub Time in: 11:55 [email or web address] 11:55 AM Joseline Raza RN Position: Surplus Property Disposal Agent Time in: 11:[email or web address] 12:05 PM CathStat 12:05 PM Vitals capture started with the following parameters, Patient=Adult, Interval=5 min, Initial Itcpfiqf=718 mmHg, Deflation Rate=5 mmHg, Cuff placed on Left Arm 12:05 PM Recorded ECG: HR=64 Condition=Condition 1 12:06 PM HR=64 bpm, GACZ=645/82 mmhg, AzI8=907.0 %, Resp=19 B/min 12:08 PM Time: 12:08 Oxygen on at 2 L/min per nasal cannula by Joseline Raza RN [facility] 12:08 PM Time: 12:08 Versed 2 mg Intravenous Given by Joseline Raza RN [facility] 12:08 PM Time: 12:08 Fentanyl 50 mcg Intravenous Given by Joseline Raza RN [facility] 12:08 PM Time: 12:08 Patient comfortable and pain free: Yes [facility] 12:08 PM Time: 12:08LOC: 5 = Fully awake and oriented or at pre-proc level [facility] 12:08 PM Clinical Presentation: Non-STEMI [facility] 12:10 PM HR=66 bpm, KKDS=520/69 mmhg, SpO2=98.0 %, Resp=26 B/min, Comment=NSR 12:13 PM Time out performed according to [facility] policy [facility]13 PM Pressure channel 1 zeroed. 12:14 PM Time: 12:13 18 ml Lidocaine 2% to right groin Subcutaneous Given by Adrien Mahan MD, [facility] tsites 12:15 PM Access obtained by percutaneous puncture. 6Fr 10cm Terumo [place] sheath placed in right Femoral artery. [id number] tsites 12:15 PM HR=63 bpm, UBAS=529/75 mmhg, SpO2=98.0 %, Resp=13 B/min, Comment=NSR 12:15 PM 0.035 145cm Navilyst 3mmJ wire [id number] tsites 12:15 PM 5Fr FL 4 catheter inserted over the wire [facility] 12:16 PM LCA angiography performed in multiple views. tsites 12:16 PM Recorded Pressure: Ao, HR=61, Condition=Condition 1 (Aorta) Ao 108/62/83 12:17 PM Lesion found in Mid LAD. Pre Stenosis: 40 Pre MARTIN Flow: tsites 12:17 PM Mid/Distal Left Anterior Descending Coronary Artery and diagonal branches with 40% stenosis. If graft is supplying this area, 0 % stenosis tsites 12:17 PM Lesion found in Mid Circumflex. Pre Stenosis: 20 Pre MARTIN Flow: tsites 12:18 PM Lesion found in Proximal LAD. Pre Stenosis: 30 Pre MARTIN Flow: tsites 12:18 PM Proximal Left Anterior Descending Coronary Artery with 30% stenosis. If graft is supplying this territory, 0 % stenosis. tsites 12:18 PM Circumflex, Obtuse Marginal, Left Posterior Descending, and Left Posterolateral Coronary Arteries with 20 % stenosis. If graft is supplying this area, 0 % stenosis tsites 12:18 PM wire reinserted catheter removed tsites 12:18 PM 5Fr FR 4 catheter inserted over the wire DNC tsites 12:19 PM RCA angiography performed in multiple views. tsites 12:19 PM Recorded Pressure: Ao, HR=59, Condition=Condition 1 (Aorta) Ao 102/63/81 12:20 PM Lesion found in Mid RCA. Pre Stenosis: 20 Pre MARTIN Flow: tsites 12:20 PM Right Coronary, Right Posterior Descending Arteries with Right Posterolateral and Acute Marginal branches with 20 % stenosis. If graft is supplying this area, 0 % stenosis tsites 12:20 PM wire reinserted catheter removed tsites 12:20 PM 5Fr Pigtail catheter inserted over the wire DNC tsites 12:20 PM Catheter selectively placed in left ventricle tsites 12:21 PM HR=68 bpm, OECF=632/67 mmhg, SpO2=96.0 %, Resp=24 B/min, Comment=NSR 12:21 PM Recorded Pressure: LV, HR=68, Condition=Condition 1 (Left Ventricle) LV 116/-8/9 12:22 PM Bolus angiogram of left Ventricle complete: 10 ml/sec for a total of 30 mls tsites 12:23 PM Recorded Pressure: LV, Ao, HR=65, Condition=Condition 1 (Left Ventricle) LV 131/-5/9, (Aorta) Ao 135/62/90 12:23 PM wire reinserted catheter removed tsites 12:23 PM Coronary Dominance: right tsites 12:23 PM Bolus angiogram of right Femoral complete: 2 ml/sec for a total of 4 mls tsites 12:24 PM Procedure completed at 12:24 tsites 12:24 PM Sign out completed: Radiation Dose 95 mGy Fluoro Time: 1.1 Isovue 370 - 500ml contrast 54 ml given by Adrien Mahan MD, [facility]. Complications: NoneCardiac Rehab Consult needed: NoConfirmed administered medications: Yes tsites 12:24 PM Isovue 370 - 500ml,1 Bottle(s) used. tsites 12:24 PM Arterial sheath pulled, Mynx closure device used and was Successful S/N. tsites 12:25 PM Post ECG NSR tsites 12:25 PM Post Blood Pressure 120/67 tsites 12:25 PM 12:25 Post Pulses Bilateral DP \\T\\ PT 2+ tsites 12:25 PM Information taught Cardiac Cath and Mynx tsites 12:25 PM Education needs Procedure, Plan of Care, and Responsibilities of Patient in Care tsites 12:25 PM Learning barriers :None tsites 12:25 PM Education Methods Verbal tsites 12:25 PM Education evaluation Able to repeat information tsites 12:25 PM HR=65 bpm, YVCK=775/66 mmhg, SpO2=95.0 %, Resp=13 B/min 12:25 PM Site status No bleeding/hematoma - Rt Groin as reported by Flora Goyal RT (R) at 12:25 tsites 12:25 PM Opsite applied tsites 12:[address] Mahan to speak with family in the cardiopulmonary area tsites 12:29 PM Report given to Valerie CHONG Pt taken to 2NE Room #16. 12:29 tsites 12:29 PM Delay to floor No tsites 12:29 PM Patient out of room: 12:29 tsites Complications Complication None Hemodynamics Pressures Site Systolic/A Wave Diastolic/V Wave Mean AO 108 62 83 AO 102 63 81 LV 116 -8 9 LV 131 -5 9 AO 135 62 90 Post Procedure Information Blood Pressure: 120/67 mmHg Rhythm: NSR Post procedural instructions were given Closure Device Time Device Success/Fail 08/28/2016 12:29:00 PM MynxGrip Successful Site Checks Time Location Status Staff Sheath In? Note 12:25 PM Rt Groin No bleeding/hematoma Flora Goyal RT (R) Pulses Time Site Pre-Procedure Post-Procedure Note 08/28/2016 11:04:00 AM Bilateral DP \\T\\ PT 2+ 08/28/2016 11:04:00 AM Bilateral radial 2+ 12:25:00 PM Bilateral DP \\T\\ PT 2+ Updated by Jen Salas RT (R) on 08/28/2016 12:32:09 PM Jen Salas RT electronically signed on 08/28/2016 12:33:02 PM with status of Final
--- NOTE | 2016-08-28 12:55 | Event Note ---
Date of Encounter: 08/28/16 Time of Encounter: 12:52 - Cardiology Event Note LHC revealed tortuous small vessels with no significant stenosis. Medical management recommended. Discussed with Dr. Morgan, d/t asa allergy recommend plavix 75 mg daily for primary prevention. Continue statin and bb as tolerated. TTE shows preserved EF. Cardiology will sign off. Out patient f/u will be scheduled in one week. Please call with questions.
--- NOTE | 2016-08-28 14:16 | Internal Med Progress Note ---
Date of Encounter: 08/28/16 Time of Encounter: 14:13 - Assessment and plan (1) Chest pain Current Visit: Yes Status: Acute Assessment and plan: 80/F background history of HTN and PE ( at the age of 36) admitted with non radiating localized chest pain upon admission MARTIN 3 plan cardiology on board cath today Qualifiers: Chest pain type: unspecified Qualified Code(s): R07.9 - Chest pain, unspecified (2) Non-STEMI (non-ST elevated myocardial infarction) Current Visit: Yes Status: Acute Assessment and plan: admitted with chest pain NSTEMI : Trop :0.7, 1.5 and 1.2 loaded with plavix underwent cath no significant CAD which needs to be stented medical management plan home tomorrow ( patient prefers to stay overnight) Plavix 75 mg/BB/Statin as per cardio follow up with cardio/PCP (3) Hypertension Current Visit: Yes Status: Acute Assessment and plan: well controlled blood pressure Qualifiers: Hypertension type: essential hypertension Qualified Code(s): I10 - Essential (primary) hypertension (4) DVT prophylaxis Current Visit: Yes Status: Acute - Subjective Interval history: seen and examined. chart reviewed. patient denies chest pain or SOB family at bedside. - Constitutional Vitals: Temp Pulse Resp BP Pulse Ox 97.8 F 71 15 136/80 97 08/28/16 07:45 08/28/16 07:45 08/28/16 07:45 08/28/16 07:45 08/28/16 09:09 General appearance: Present: A&O X 3, pleasant, no acute distress - Head Head exam: Present: atraumatic, normocephalic - Eye Eye exam: Present: PERRL, conjuntiva pink, sclera anicteric Pupils: Present: PERRL - Neck Neck exam general surgery: Present: supple, trachea midline. Absent: lymphadenopathy - Respiratory Respiratory exam: Present: CTAB. Absent: accessory muscle use, rales, rhonchi, wheezes - Cardiovascular Cardiovascular exam: Present: RRR, +S1, +S2. Absent: diastolic murmur, gallop, rubs, systolic murmur - GI/Abdominal GI/Abdominal exam: Present: normal bowel sounds, soft, no peritoneal signs. Absent: distended, tenderness - Extremities Exam Extremities exam: Present: warm, radial pulses palpable and symetrical. Absent : calf tenderness, cyanotic, pedal edema - Neurological Exam Neurological exam: Present: CN II-XII intact, oriented X3, no focal deficits. Absent: pronater drift, facial droop, speech deficit - Skin Skin exam: Present: dry, intact Internal Medicine: Result - Labs CBC & Chem 7: 08/28/16 02:50 08/28/16 04:35 Labs: Short CBC 08/28/16 Range/Units 02:50 WBC 5.8 (4.3-11.1) K/mcL Hgb 14.0 (11.5-15.4) g/dL Hct 42.5 (35.3-44.9) % Plt Count 169 (140-400) K/mcL Neutrophils # 2.8 (1.6-8.9) K/mcL BMP 08/28/16 04:35 Sodium 141 Potassium 4.0 D Chloride 106 Carbon Dioxide 28 BUN 18 Creatinine 0.77 Glucose 109 H Calcium 9.3 Cardiac Enzymes 08/27/16 08/27/16 Range/Units 15:22 22:22 Troponin I 1.55 H* 1.22 H* (0-0.03) ng/mL - ABG Interpretation ABG results: PT/INR, D-dimer PT 11.9 Seconds (9.4-12.1) 08/27/16 09:36 D-Dimer 277 ng/mLFEU (0-500) 08/27/16 12:42 Consult Discharge Plan - Plan Referrals: Skpi Herrera Jr, MD [Primary Care Provider] -
--- NOTE | 2016-08-28 17:35 | Oncology Inp Consult Note ---
Date of Encounter: 08/29/16 Time of Encounter: 17:33 Assessment and Plan (1) Adverse reaction to aspirin Status: Acute Assessment and plan: The 2012 [place] [employer]/[place] [employer] Focused Update of the Guideline for the Management of Patients with Unstable Angina/Hmk-VD-Bpymrrdkm Myocardial Infarction recommends clopidogrel or ticagrelor alone in aspirin-allergic patients. These guidelines advise against combination of 2 P2Y12 receptor inhibitors as there are no data to support that approach.. If due well platelet blockages necessary especially after percutaneous intervention may consider adding Pletal 100 mg by mouth twice a day. She also has a allergic to heparin which happened about 30 years ago.. Recommendation is to use bivalirudin in place of heparin Qualifiers: Qualified Code(s): T39.015A - Adverse effect of aspirin, initial encounter (2) Non-STEMI (non-ST elevated myocardial infarction) Status: Acute Assessment and plan: Cardiac catheterization 08/28/2016 revealed arteries but no major blockage. Recommendation is long-term use of P2Y12 receptor inhibitor. - Data of Consult Patient: new to practice Requesting Physician: Juan Morillo MD Primary Care Provider: Skip Herrera Jr, MD - Consult Narrative Reason for consult: ACS with aspirin and heparin allergy History of present illness: Ms. Lott is a 80 year old female admitted with chest pain. Diagnosed with Non STMI. She had allergic reaction to aspirin mainly in the form of petechial rash. This was all over the body. No shortness of breath or other problems with aspirin. About 30 years ago she had pulmonary embolism and treated with heparin. Currently she passed out and she could not feel her extremities. She was told that it was a radical allergic reaction to heparin and not to take it again She could not tell me if she was on oral anticoagulation after heparin. She had no recurrence of PE since then. No previous history of coronary artery disease Her troponin levels and this admission 0.78, 1.5, 1.2. Echocardiogram 08/27/2016 showed LV systolic function 65%. Mild diastolic dysfunction area no pulmonary hypertension Cardiac catheterization showed no major blockage. Small tortuous blood vessels. Her chest pain has improved since admission Past Med Surg Social Fam HX - Past Medical History Medical history: hypertension, pulmonary embolus - Past Surgical History Surgical History: other (tonsillectomy) - Social History Smoking Status: Former smoker (10 pack year history) Smokeless Tobacco Status: No Alcohol use: occasionally Drug use: none - Family History Mother Living Status: Age at : 89 Cause of : Breast cancer Hx Family Cancer: Yes Father Living Status: Age at : 88 Cause of : [place] Hx Family Cardiac Disorders: Yes Medications and Allergies hydroCHLOROthiazide [Hydrochlorothiazide] 25 mg PO DAILY 08/27/16 [History] Allergies aspirin Allergy (Verified 08/27/16 11:19) See Comments Bleeds internal heparin Allergy (Verified 08/27/16 11:19) See Comments All systems: reviewed and no additional remarkable complaints except as stated Review of systems: Chest pain with mild shortness of breath. No major GI symptoms Oncology - Exam - Constitutional Vitals: Temp Pulse Resp BP Pulse Ox 97.7 F 64 15 118/72 94 08/28/16 15:59 08/28/16 15:59 08/28/16 15:59 08/28/16 15:59 08/28/16 15:59 Provider Comments:: GENERAL: Alert and oriented, well appearing. Mental Status: Affect appropriate for circumstances HEENT: Sclerae anicteric. No mucositis or thrush. No other oral or pharyngeal lesions or erythema. Skin: No rashes or petechiae. No evidence of skin malignancy Lymph nodes: No cervical, supraclavicular, axillary, or inguinal adenopathy. Lungs: Air entry normal with normal breath sounds. No rhonchi or wheezing Cardiovascular: Regular rate and rhythm. No skipped beats Abdomen: Soft, nontender; no organomegaly or masses palpable. Extremities: No edema. No calf swelling or tenderness. No joint deformity. Neurologic: Alert, cranial nerves II-XII intact; normal gait; no focal weakness or sensory abnormalities Oncology - Results - Labs Labs: Short CBC 08/28/16 Range/Units 02:50 WBC 5.8 (4.3-11.1) K/mcL Hgb 14.0 (11.5-15.4) g/dL Hct 42.5 (35.3-44.9) % Plt Count 169 (140-400) K/mcL Neutrophils # 2.8 (1.6-8.9) K/mcL BMP 08/28/16 04:35 Sodium 141 Potassium 4.0 D Chloride 106 Carbon Dioxide 28 BUN 18 Creatinine 0.77 Glucose 109 H Calcium 9.3 Cardiac Enzymes 08/27/16 Range/Units 22:22 Troponin I 1.22 H* (0-0.03) ng/mL Consult Discharge Plan - Plan Referrals: Skip Herrera Jr, MD [Primary Care Provider] - Virginia Ramirez CNP [Advanced Practice Nurse] - 09/05/16 9:00 am
[2016-08-29 06:26] VITALS: BP 141/85
[2016-08-29] MEDS ORDERED: Ondansetron 4 MG/2 ML VIAL IVP PRN (08:50)
[2016-08-29] MEDS ORDERED: ALPRAZolam 0.25 MG TABLET PO ONE (08:51)
[2016-08-29] MEDS: hydroCHLOROthiazide 25 MG TABLET PO SCH (09:10)
[2016-08-29 09:54] LABS: Alanine Aminotransferase 12 Units/L (0-55); Albumin 3.4 g/dL (3.5-5.0); Albumin/Globulin Ratio 0.9 (1.1-2.2); Alkaline Phosphatase 78 Units/L (38-126); Aspartate Amino Transferase 18 Units/L (5-34); Bilirubin,Total 0.4 mg/dL (0.2-1.2); Calcium 9.8 mg/dL (8.6-10.8); Carbon Dioxide 26 mEq/L (19-29); Chloride 103 mEq/L (98-109); Globulin 3.7 g/dL (2.4-3.5); Glucose 162 mg/dL (70-99); Potassium 3.8 mEq/L (3.5-4.5); Sodium 137 mEq/L (136-145); Total Protein 7.1 g/dL (6.0-8.3); eGFR For African Americans > 60 (> 60); eGFR For Non-African Americans > 60 (> 60)
[2016-08-29 10:04] LABS: Basophils % 0.6 %; Eosinophils # 0.2 K/mcL (0.0-0.6); Eosinophils % 2.8 %; Hematocrit 46.1 % (35.3-44.9); Immature Granulocytes % 0.3 % (0-4); Lymphocytes # 1.3 K/mcL (0.6-4.6); Lymphocytes % 19.6 %; Mean Corpuscular HGB Conc 34.1 g/dL (31.6-35.5); Mean Corpuscular Hemoglobin 30.8 pg (28.0-33.3); Mean Corpuscular Volume 90.6 fL (83.0-100.0); Mean Platelet Volume 9.8 fL (9.4-12.4); Monocytes # 0.5 K/mcL (0.0-1.3); Neutrophils # 4.7 K/mcL (1.6-8.9); Platelet Count 174 K/mcL (140-400); Red Blood Count 5.09 M/mcL (3.82-4.97); Red Cell Distribution Width 13.6 % (11.5-14.5); Segmented Neutrophils % 69.7 %
[2016-08-29 10:09] LABS: BUN/Creatinine Ratio 20 (6-26); Blood Urea Nitrogen 16 mg/dL (7-20); Osmolality,Calculated 289 (280-300)
[2016-08-29 10:13] LABS: Hemoglobin 15.7 g/dL (11.5-15.4)
--- NOTE | 2016-08-29 14:51 | Discharge Summary ---
Date of Encounter: 08/29/16 Time of Encounter: 14:49 - Discharge Diagnosis (1) Chest pain Priority: Primary Status: Acute Qualifiers: Chest pain type: unspecified Qualified Code(s): R07.9 - Chest pain, unspecified (2) Non-STEMI (non-ST elevated myocardial infarction) Priority: Primary Status: Acute (3) Hypertension Priority: Secondary Status: Acute Qualifiers: Hypertension type: essential hypertension Qualified Code(s): I10 - Essential (primary) hypertension (4) DVT prophylaxis Priority: Secondary Status: Acute (5) History of pulmonary embolus (PE) Priority: Secondary Status: Acute - Discharge Medications Prescriptions: Atorvastatin [Lipitor] 80 mg PO HS #60 tablet Clopidogrel [Plavix] 75 mg PO DAILY #30 tablet Metoprolol [Lopressor] 25 mg PO BID #60 tablet Home Medications: hydroCHLOROthiazide [Hydrochlorothiazide] 25 mg PO DAILY 08/27/16 [History] Atorvastatin [Lipitor] 80 mg PO HS #60 tablet 08/29/16 [Rx] Clopidogrel [Plavix] 75 mg PO DAILY #30 tablet 08/29/16 [Rx] Metoprolol [Lopressor] 25 mg PO BID #60 tablet 08/29/16 [Rx] Allergies/Adverse Reactions: Allergies aspirin Allergy (Verified 08/27/16 11:19) See Comments Bleeds internal heparin Allergy (Verified 08/27/16 11:19) See Comments Procedures/tests Complete & Pending: Procedures Performed prior 72 hours Category Date Time Status CT head/brain wo con [CT] Stat Cat Scan 08/29/16 08:49 Completed CL Cardiac Catheterization [CL] Routine 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 ST depressions in lateral leads. Allergic to aspirin and heparin. Call Completed: Yes 08/27/16 15:01 Consult to Oncology Hematology [CONS] Routine Consulting Provider: Pepper Fitzgerald Reason for Consult: Asa allergy- Petechiae rash. Heparin allergy. Patient needs dual antiplatelet therapy. Please evaluate for PLT disorder. Call Completed: Yes Discharging clinician: Juan Morillo - Patient Status Disposition: Home, Self-Care Condition: Good Functional capacity at discharge: independent ambulation Overall status at discharge: patient is progressing back to baseline - Discharge Instructions Follow Up With: Skip Herrera Jr, MD [Primary Care Provider] - Virginia Ramirez CNP [Advanced Practice Nurse] - 09/05/16 9:00 am Sessions,Dakotah Yan DPM [Partnered Physician] - Forms: ED Satisfaction Letter - Diet and Activity Activity: increase activity as tolerated Diet: low fat, low cholesterol, low salt diet Interval History: Ms. Lott is a 80 year old female with hypertension and history of remote PE at age 37, who presented to the emergency department today with complaints of chest pain. She reports that last evening approximately 7:00 she developed tightness in her chest that she initially thought was indigestion she experienced lightheadedness on and off last evening as well as some shortness of breath. This morning she woke up in the chest pressure was still there, and she had what she described as a hot flash with sweating. She denies any headache, palpitations, abdominal pain, diarrhea, fever, chills. She reports some mild nausea. Evaluation in the emergency department included an EKG which showed ST depression in the lateral leads, elevated troponin of 0.78, elevated BNP of 130, hypokalemia with potassium 2.9. Chest x-ray showed no acute abnormality. Patient has allergies to aspirin and heparin. She was given Nitropaste and reports that her chest pressure improved after the Nitropaste. On exam, patient alert and oriented, in no acute distress. Lungs are clear bilaterally to auscultation, heart has regular rate and rhythm Hospital course: Patient presented with chest pressure since last evening, SOB, lightheadedness and sweats. EKG shows ST depressions in lateral leads. Troponin elevated at 0.78. Patient given Nitropaste in ED which somewhat relieved chest pressure. Patient with allergies to heparin and aspirin. Cardiology consulted, spoke with Dr. Grimes, who will see patient. Cardiology evaluated the patient. Patient scheduled for cardiac catheterization. Patient underwent cardiac catheterization. Left heart catheterization revealed tortuous small vessels with no significant stenosis. Medical management recommended. Patient will be on Plavix, beta blockers and Lipitor. Echocardiogram showed her ejection fraction is preserved to 65%. No abnormal valvular dysfunction. Right groin catheterization site is clean. Distal pulses present. Patient was supposed to go home this morning. Patient was complaining of severe nausea along with severe headache. CT scan of the head did not show any bleed. Patient was treated symptomatically. Plan: Prescriptions given, Plavix 75 mg every day, metoprolol 25 mg twice a day, Lipitor 80 mg at night. Effects/side effects discussed at length. Patient verbalized understanding. Patient can go home today. She will follow up with cardiology in 1-2 weeks. Patient will follow up with primary care doctor but no in 1-2 weeks. All questions answered. Patient requested referral to podiatry. The time of discharge patient does not have any questions, concerns, update or recommendations. - Time Spent with Patient Total time spent providing and/or coordinating discharge services: - Constitutional Vitals: Temp Pulse Resp BP Pulse Ox 97.8 F 65 15 141/85 97 08/29/16 06:21 08/29/16 06:21 08/29/16 06:21 08/29/16 06:21 08/29/16 06:21 General appearance: Present: A&O X 3, pleasant, no acute distress - Head Head exam: Present: atraumatic, normocephalic - Eye Eye exam: Present: PERRL, conjuntiva pink, sclera anicteric Pupils: Present: PERRL - Neck Neck exam general surgery: Present: supple, trachea midline. Absent: lymphadenopathy - Respiratory Respiratory exam: Present: CTAB. Absent: accessory muscle use, rales, rhonchi, wheezes - Cardiovascular Cardiovascular exam: Present: RRR, +S1, +S2. Absent: diastolic murmur, gallop, rubs, systolic murmur - GI/Abdominal GI/Abdominal exam: Present: normal bowel sounds, soft, no peritoneal signs. Absent: distended, tenderness - Extremities Exam Extremities exam: Present: warm, radial pulses palpable and symetrical. Absent : calf tenderness, cyanotic, pedal edema - Neurological Exam Neurological exam: Present: CN II-XII intact, oriented X3, no focal deficits. Absent: pronater drift, facial droop, speech deficit - Skin Skin exam: Present: dry, intact - VTE Documentation of Mechanical Device: Intermittent pneumatic compression device
--- NOTE | 2016-08-30 09:55 | Invasive Diagnostic Lab ---
Name: Kathrin Lott Date of Study: 08/28/2016 Date: 1935 Ht: 157.5 cm /62.0 in Medical Record#: [id number] Age: 80 Wt: 77.3 kg / 170.42 lb Account/Order#: [id number] Gender: Female BSA: 1.79 Order #: [id number] Fluoro Dose: 95 mGy BMI: 31.16 Procedure Physician: Adrien Mahan MD, FACC Referring MD: Referring MD: Procedures Performed: LEFT HEART CATH Iliofemoral angiography Indications: Non-Stemi Impressions: Mild coronary artery disease with tortuous arteries The left ventricle is normal and has normal contractility EF 65% Recommendations: Optimal medical therapy of patient's disease. Aggressive risk factor modification. History/Risk Factors: PE Hypertension Procedure Access obtained in the right Femoral artery by percutaneous puncture Complications: None Contrast: Isovue 54ml Closure Device: MynxGrip Hemodynamics: Pressures Site Systolic/ A Wave Diastolic/ V Wave End Diastolic/ Mean HR AO 108 62 83 61 AO 102 63 81 59 LV 116 -8 9 68 LV 131 -5 9 66 AO 135 62 90 64 LV Ventriculography Ejection Method: LV Gram Ejection Fraction: 65% Wall Motion: NAJERA Anterobasal Normal Anterolateral Normal Apical: Normal Inferoapical Normal Inferobasal Normal Coronary Dominance: right Lesion Findings/Interventions * Left Main Coronary Artery The LMCA is angiographically free of disease. * Left Anterior Descending There is a 30% stenosis in the Proximal LAD. There is a 40% stenosis in the Mid LAD. * Circumflex There is a 20% stenosis in the Mid Circumflex. * Right Coronary Artery There is a 20% stenosis in the Mid RCA. Vessels are noted as torturous. Visualized portions of the iliofemoral arteries (distal external iliac/[employer]ET [employer]NAGER/ proximal SFA/profunda without significant disease. Appropriate sheath placement for closure device Updated by Jenswati Salas, RT (R) on 08/28/2016 12:32:46 PM Adrien Mahan MD, FACC electronically signed on 08/30/2016 9:49:57 AM with status of Final
== END 2016-08-29 15:44 | disposition home or self-care (01) | DRG 282 ==
LOC: 2NENU 09:13 → EMEROO 09:13 → 2NENU 12:42
PROVIDERS: ADMIT Internal Medicine Endocrinology, Diabetes & Metabolism; ATTEND Internal Medicine